=== PATIENT | female | born 1950 | race Caucasian/White ===

== ENCOUNTER → 2020-01-31 | Outpatient (CLI) | payer MEDICARE ==
--- NOTE | 2020-01-31 16:01 | Diagnostic Imaging Report ---
EXAM: US ABDOMEN COMPLETE DATE: 01/31/2020 3:18 PM INDICATION: Right upper quadrant pain COMPARISON: None TECHNIQUE: Transverse and longitudinal faustin scale and color doppler sonographic images of the upper abdomen were obtained. FINDINGS: LIVER 16.4 cm in the right midclavicular line. Coarse echotexture of the liver with normal contour, no masses. SPLEEN 8.0 cm in maximum diameter. Normal echogenicity, no masses. GALLBLADDER No gallbladder wall thickening, distension, stone, or pericholecystic fluid. Negative reported sonographic Shay's sign. The gallbladder wall measures 2mm BILE DUCTS No intra nor extra-hepatic biliary dilation. Common bile duct measures 4mm PANCREAS: Visualized portions are normal. RIGHT KIDNEY: 9.9 cm Echogenicity: Normal Collecting System: No hydronephrosis Stones: None Cyst/Mass: None LEFT KIDNEY: 8.5 cm Echogenicity: Normal Collecting System: No hydronephrosis Stones: None Cyst/Mass: None VESSELS: Aorta: Visualized portions are within normal size limits Inferior Vena Cava: Visualized portions are normal Main Portal Vein: 0.7 cm, normal size with hepatopetal flow. FREE FLUID: None IMPRESSION: No cholelithiasis or sonographic evidence of cholecystitis. Coarse hepatic echotexture. Signed by: Krystian Degroot MD on 01/31/2020 3:58 PM
== END ==
LOC: US 15:07
PROVIDERS: ATTEND Internal Medicine Gastroenterology
DX: R10.11 Right upper quadrant pain (principal)
CPT/HCPCS: 76700

== ENCOUNTER → 2020-02-14 | Day surgery (SDC) | payer MEDICARE, OTHER ==
[2020-02-11 12:36] LABS: BASOPHILS % 0.4 % (0.0-1.0); EOSINOPHILS # (AUTO) 0.1 (0.0-0.4); EOSINOPHILS % 0.5 % (0.0-6.0); HEMOGLOBIN 8.8 g/dL (12.0-16.0); LYMPHOCYTES # (AUTO) 1.4 (1.0-3.2); LYMPHOCYTES % 13.7 % (18.0-39.1); MEAN CORPUSCULAR HEMOGLOBIN 24.4 pg (28-32); MEAN CORPUSCULAR HGB CONC 30.3 g/dL (31-35); MEAN CORPUSCULAR VOLUME 80.3 fL (81-99); MONOCYTES # (AUTO) 0.7 (0.2-0.8); MONOCYTES % 7.4 % (4.4-11.3); NEUTROPHILS # (AUTO) 7.7 (2.1-6.9); NEUTROPHILS % 77.6 % (38.7-80.0); PLATELET COUNT 391 x10e3/uL (140-360); RED BLOOD COUNT 3.61 x10e6/uL (3.6-5.1); RED CELL DISTRIBUTION WIDTH 15.5 % (11.7-14.4)
[~2020-02-14] MED LIST: AMLODIPINE BESYL5 MG PO; ASPIR 8181 MG PO; ATORVASTATIN CA20 MG PO; CLOPIDOGREL75 MG PO; ETOMIDATE 2 MG/ML 10 ML INJ IV ONE; HYOSCYAMINE 0.125 MG TAB ONE; LIDOCAINE HCL 2% LOCAL INJ 5 ML SDV VIAL INJ ONE; LISINOPRIL10 MG PO; NORCO 7.5-3251 EACH PO; PROPOFOL IV EMULSION 10 MG/ML 20 ML VIAL ONE; PROTONIX20 MG PO; VITAMIN B122500 MCG PO; VITAMIN D310 MCG PO
[2020-02-14 11:38] LABS: ALBUMIN 3.7 g/dL (3.5-5.0); ALBUMIN/GLOBULIN RATIO 1.1 (0.8-2.0); ANION GAP 14.1 mmol/L (8-16); CALCIUM 9.6 mg/dL (8.4-10.2); CREATININE, SERUM 1.35 mg/dL (0.57-1.11); POTASSIUM 4.1 mmol/L (3.5-5.1)
[2020-02-14 14:55] VITALS: BP 139/63
--- NOTE | 2020-02-14 20:51 | Operative Report ---
DATE OF PROCEDURE: 02/14/2020 SURGEON: Jose Franco MD PROCEDURE: EGD with biopsies and colonoscopy with polypectomy. INDICATIONS FOR EGD: Upper abdominal pain, heartburn. INDICATIONS FOR COLONOSCOPY: Colorectal cancer screening, personal history of colon polyps, mother with colon cancer. MEDICATIONS: The patient was done under MAC, please see anesthesiologist's note. PROCEDURE IN DETAIL: With the patient in left lateral decubitus position, a flexible fiberoptic Olympus gastroscope was introduced into the esophagus under direct visualization without difficulty. There was some patchy erythema noted in distal esophagus. The scope was then advanced with ease into the stomach traversing a large hiatal hernia approximately 7 cm in size. The mucosa overlying the antrum and the body revealed some patchy erythema and low-grade to moderate edema. Biopsies were obtained sent to stain for H pylori. The pylorus was of normal contour and shape, was intubated with ease and the scope was advanced all the way to the second portion of the duodenum. The scope was then withdrawn slowly and biopsies were obtained from the proximal second portion and the duodenal bulb. The scope was then withdrawn back into the stomach and retroflexed and a previously described hiatal hernia was also noted in the retroflexed position. The cardia appeared to be within normal limits. The scope was then straightened out, it was subsequently withdrawn. The patient tolerated the procedure well. IMPRESSION: 1. Mild distal esophagitis. 2. Large hiatal hernia approximately 7 cm in size. 3. Gastritis, biopsied biopsies sent to stain for H pylori. 4. Rule out sprue. PLAN: Follow up histology. Increase Protonix to 40 mg one p.o. a.c. b.i.d. The patient was then turned around after adequate lubrication of the anal canal, a flexible fiberoptic Olympus gastroscope was introduced into the esophagus under direct visualization without any difficulty. The sigmoid colon was negotiated with some difficulty as it was sharply angulated and somewhat fixed and the visualization was suboptimal. The scope was then withdrawn slowly, mucosa overlying the cecum appeared to be within normal limits. Approximately 8 mm sessile polyp was removed per snare electrocautery from the proximal ascending colon. Diverticular disease was pretty much noted throughout the colon. Again, the sigmoid colon on the way back also was suboptimally visualized as it was tortuous, sharply angulated, and somewhat fixed. A minute polyp was noted in the rectum that was hot biopsied. The scope was then retroflexed into the distal rectum and small internal hemorrhoids were noted, none of which was actively bleeding. The scope was then straightened out, it was subsequently withdrawn. The patient tolerated the procedure well. IMPRESSION: 1. Ascending colon polyp, hot snared. 2. Garcia diverticulosis. 3. Sigmoid colon, sharply angulated and somewhat fixed suboptimally visualized. 4. Rectal polyp, hot biopsied. 5. Internal hemorrhoids, none actively bleeding. PLAN: Follow up histology. Initiate high-fiber, low-fat diet. Initiate high-fiber supplement. As the patient has a pure iron deficiency anemia, she will need a small bowel series and if negative, a capsule endoscopy. The patient might benefit from a followup colonoscopy in 3 years. Jose Franco MD [facility] [place] [place] /[id number] cc: Armand Franco MD
== END | disposition home or self-care (01) ==
LOC: OR 10:17
PROVIDERS: ATTEND Internal Medicine Gastroenterology
DX: Z12.11 Encounter for screening for malignant neoplasm of colon (principal); D12.2 Benign neoplasm of ascending colon; K62.1 Rectal polyp; K29.50 Unspecified chronic gastritis without bleeding; K20.9 Esophagitis, unspecified; K29.80 Duodenitis without bleeding; K56.609 Unspecified intestinal obstruction, unspecified as to partial versus complete obstruction; K44.9 Diaphragmatic hernia without obstruction or gangrene; K57.30 Diverticulosis of large intestine without perforation or abscess without bleeding; K64.8 Other hemorrhoids; K21.9 Gastro-esophageal reflux disease without esophagitis; M19.90 Unspecified osteoarthritis, unspecified site; M54.9 Dorsalgia, unspecified; J44.9 Chronic obstructive pulmonary disease, unspecified; N20.0 Calculus of kidney; I10 Essential (primary) hypertension; E78.00 Pure hypercholesterolemia, unspecified; Z01.810 Encounter for preprocedural cardiovascular examination; Z01.812 Encounter for preprocedural laboratory examination; Z11.59 Encounter for screening for other viral diseases; Z79.82 Long term (current) use of aspirin; Z79.02 Long term (current) use of antithrombotics/antiplatelets; Z80.0 Family history of malignant neoplasm of digestive organs
CPT/HCPCS: 36415 ×2; 43239; 45384; 45385; 80053; 82607; 82746; 83540; 84466; 85025; 85045; 87635; 93005; J2001; J2704; 45378

== ENCOUNTER → 2020-03-10 | Outpatient (CLI) | payer MEDICARE, OTHER ==
[~2020-03-10] MED LIST changes: -ETOMIDATE 2 MG/ML 10 ML INJ IV ONE; -HYOSCYAMINE 0.125 MG TAB ONE; -LIDOCAINE HCL 2% LOCAL INJ 5 ML SDV VIAL INJ ONE; -PROPOFOL IV EMULSION 10 MG/ML 20 ML VIAL ONE
--- NOTE | 2020-03-11 09:41 | Diagnostic Imaging Report ---
EXAM: BONE DXA DUAL ENERGY DATE: 03/10/2020 9:47 AM COMPARISON: None HISTORY: Screening for osteoporosis TECHNIQUE: Dual X-ray Absorptiometry was performed. Bone mineral density (BMD), T-score (young normals), and Z-score (age-matched normals) are reported. QUALITY: The study is technically adequate. FINDINGS: Left hip femoral neck bone mineral density: 0.545 g/cm2, T-score is -2.7, Z-score is -0.9. Left hip total bone mineral density: 0.640 g/cm2, T-score is -2.5, Z-score is -0.9. . Lumbar spine total bone mineral density: 0.825 gm/cm2, T-score is -2.0, Z-score is 0.2. IMPRESSION: Bone mineralization by WHO criteria is osteoporosis, the fracture risk is high The 10-year probability for major osteoporotic fracture is not reported because some T-scores at or below -2.5 Signed by: Dr. Andrew Jean M.D. on 03/11/2020 9:38 AM
== END ==
LOC: MAMMO 09:26
DX: Z12.31 Encounter for screening mammogram for malignant neoplasm of breast (principal); M89.9 Disorder of bone, unspecified; Z78.0 Asymptomatic menopausal state
CPT/HCPCS: 77067; 77080

== ENCOUNTER → 2020-03-10 | Outpatient (CLI) | payer MEDICARE, OTHER ==
--- NOTE | 2020-03-10 13:10 | Diagnostic Imaging Report ---
FLUOROSCOPIC SMALL BOWEL SERIES FINISHING ROOM OPERATOR(S): Krystian Degroot MD Indication: Anemia Comparison: None. Radiation Dose: Total dose: 4.3mGy Total fluoroscopy time: 0.3 minutes Procedure: Small bowel follow through exam was performed using oral barium. Preliminary image was obtained before administration of contrast and serial overhead images were obtained after administration of oral barium. Fluoroscopy was performed and spot images were obtained. DISCUSSION: MEDICAL OFFICE REP: The bowel gas pattern is non-obstructive. No acute bony abnormality. Right common iliac stent. STOMACH: Unremarkable mucosal pattern. SMALL BOWEL: Duodenal diverticulum measures up to 4cm. Bulb and sweep are otherwise normal. Duodenal-jejunal junction is in the normal expected position. Small bowel loops are normal in caliber and distribution. There is no evidence of fistula, mucosal changes, stricture or dilation. The transit time was within normal limits. COLON: Partially visualized proximal colon is unremarkable. Spot images of the terminal ileum appear unremarkable. IMPRESSION: Unremarkable fluoroscopic small bowel series. Signed by: Krystian Degroot MD on 03/10/2020 1:07 PM
== END ==
LOC: DX 09:19
PROVIDERS: ATTEND Internal Medicine Gastroenterology
DX: D64.9 Anemia, unspecified (principal); Z11.59 Encounter for screening for other viral diseases
CPT/HCPCS: 74250; U0002

== ENCOUNTER → 2020-04-18 | Outpatient (CLI) | payer MEDICARE, OTHER ==
--- NOTE | 2020-04-18 19:05 | Diagnostic Imaging Report ---
Hepatobiliary Scan with Gallbladder Ejection Fraction Reason for exam: RUQ pain Report: Following intravenous administration of 5.8 millicuries of Tc-99m mebrofenin, dynamic images of the abdomen in the anterior projection were obtained through 60 minutes. Sincalide (CCK analog) 1.2 micrograms was administered intravenously over 30 minutes with additional imaging for determination of gallbladder ejection fraction. Perfusion to the liver is normal. Extraction of tracer from the blood pool by the liver parenchyma is normal. Tracer is seen promptly within the biliary tract. The gallbladder begins to fill by 18 minutes post-injection of tracer and fills adequately. Tracer is seen in the small bowel during the sincalide infusion. The gallbladder ejection fraction with administration of sincalide is 84% (normal greater than 40%). Impression: 1. Filling of the gallbladder excludes the diagnosis of acute cystic duct obstruction/acute cholecystitis. 2. Normal gallbladder ejection fraction of 84% does not support the clinical diagnosis of chronic cholecystitis/gallbladder dyskinesia. Signed by: Dr. Julienne Montalvo M.D. on 04/18/2020 7:02 PM
== END ==
LOC: NM 12:43
PROVIDERS: ATTEND Internal Medicine Gastroenterology
DX: R10.11 Right upper quadrant pain (principal); K29.70 Gastritis, unspecified, without bleeding
CPT/HCPCS: 78227; A9537